=== PATIENT | female | born 1985 | race Caucasian/White ===

== ENCOUNTER 2017-08-16 21:16 | Emergency (ER) | payer MEDICAID ==
[~2017-08-16] VITALS: Ht 165.1 cm; Wt 47.6 kg
[~2017-08-16 21:16] MED LIST: ALBU8.5H8 INH; CEPH500C5 PO; CLOT15CR74 TP; DIP0.05CR TOP; LIDO20SO PO; NO HOME MEDS
[2017-08-16] MEDS ORDERED: CYCL-1 PO (21:35)
[2017-08-16 21:39] VITALS: BP 106/63
== END 2017-08-16 21:41 | disposition home or self-care (01) ==
LOC: ER 21:17
DX: M62.838 Other muscle spasm (principal); J45.909 Unspecified asthma, uncomplicated; Z98.890 Other specified postprocedural states; F12.90 Cannabis use, unspecified, uncomplicated; F15.90 Other stimulant use, unspecified, uncomplicated; Z60.2 Problems related to living alone; Z59.0 Homelessness; Z56.0 Unemployment, unspecified; Z79.899 Other long term (current) drug therapy
CPT/HCPCS: 99283

== ENCOUNTER 2024-09-25 22:29 | Emergency (ER) | payer MEDICAID ==
[~2024-09-25] VITALS: Ht 165.1 cm; Wt 58.0 kg
[~2024-09-25 22:29] MED LIST changes: +ALBU8.5H17 INH; -ALBU8.5H8 INH; -CEPH500C5 PO; +CYCL-1 PO
[2024-09-25 22:31] VITALS: BP 136/84; PULSE 116; RESP 18; TEMP 98.6; O2SAT 97
[2024-09-25 22:58] LABS: BASOPHILS % (AUTO) 0.1 % (0-1); EOSINOPHILS % (AUTO) 0 % (0-6); HEMOGLOBIN 10.2 g/dl (12.0-16.0); LYMPHOCYTES # (AUTO) 1.5 X10'3 (1.1-4.8); LYMPHOCYTES % (AUTO) 15.3 % (21-51); MEAN CORPUSCULAR HEMOGLOBIN 28.6 PG (27.0-31.0); MEAN CORPUSCULAR HGB CONC 33.9 g/dL (33.0-36.5); MEAN CORPUSCULAR VOLUME 84.3 FL (78-98); MEAN PLATELET VOLUME 8.3 FL (7.4-10.4); MONOCYTES % (AUTO) 10.2 % (2-12); NEUTROPHILS # (AUTO) 7.5 X10'3 (1.8-7.7); NEUTROPHILS % (AUTO) 74.4 % (42-75); PLATELET COUNT 410 X10'3 (140-440); RED BLOOD COUNT 3.56 X10'6 (4.20-5.60); RED CELL DISTRIBUTION WIDTH 14.2 % (11.5-14.5)
[2024-09-25 23:06] LABS: ALBUMIN 2.5 G/DL (3.4-5.0); ANION GAP 7 (8-16); BLOOD UREA NITROGEN 10 MG/DL (7-18); BUN/CREATININE RATIO 14.5 (10.0-20.0); CALCIUM 8.6 MG/DL (8.5-10.1); CHLORIDE 103 MMOL/L (99-107); CREATININE 0.69 MG/DL (0.40-0.90); GLUCOSE 113 MG/DL (70-104); POTASSIUM 3.9 MMOL/L (3.5-5.1); SODIUM 139 MMOL/L (135-145); TOTAL CARBON DIOXIDE 29.2 MMOL/L (24-32); eCRCL 98 ML/MIN; eGFR > 90 ML/MIN
== END 2024-09-26 02:01 | disposition left against medical advice (07) ==
LOC: ER 22:30
DX: M79.641 Pain in right hand (principal); Z53.21 Procedure and treatment not carried out due to patient leaving prior to being seen by health care provider
CPT/HCPCS: 36415; 71045; 73130; 80048; 83605; 84145; 85025; 87040

== ENCOUNTER 2024-09-28 00:14 | Inpatient (IN) | payer MEDICAID ==
[2024-09-28] VITALS (16 sets, daily range): BP systolic 96–130; BP diastolic 47–68; PULSE 83–106; RESP 14–18; TEMP 97.9–98; O2SAT 95–100
[~2024-09-28] VITALS: Ht 165.1 cm; Wt 50.2 kg
[2024-09-28] MEDS: HYDROcodone/acetaminophen 10/325mg tab PO ONE (01:54)
[2024-09-28] MEDS: vancomycin/NS 1 GM ADD-VANTAGE 250 ML IV ONE (03:30)
[2024-09-28] MEDS: normal saline 1000ML IV soln IV ONE (04:12)
[2024-09-28] MEDS: HYDROmorphone 1 mg/ml syringe IV ONE ×2 (04:12→04:29)
[2024-09-28] MEDS: CefTRIAXone 2gm/D5W 50ml BAG 50 ML IV ONE (04:19)
[2024-09-28 04:35] LABS: BASOPHILS % (AUTO) 0 % (0-1); EOSINOPHILS % (AUTO) 0 % (0-6); HEMATOCRIT 31.3 % (35.0-45.0); HEMOGLOBIN 10.1 g/dl (12.0-16.0); LYMPHOCYTES # (AUTO) 1.5 X10'3 (1.1-4.8); LYMPHOCYTES % (AUTO) 9.3 % (21-51); MEAN CORPUSCULAR HEMOGLOBIN 27.2 PG (27.0-31.0); MEAN CORPUSCULAR HGB CONC 32.2 g/dL (33.0-36.5); MEAN CORPUSCULAR VOLUME 84.6 FL (78-98); MEAN PLATELET VOLUME 8.5 FL (7.4-10.4); MONOCYTES # (AUTO) 1.2 X10'3 (0-0.9); MONOCYTES % (AUTO) 7.4 % (2-12); NEUTROPHILS # (AUTO) 13.4 X10'3 (1.8-7.7); NEUTROPHILS % (AUTO) 83.3 % (42-75); PLATELET COUNT 425 X10'3 (140-440); RED CELL DISTRIBUTION WIDTH 13.9 % (11.5-14.5); WHITE BLOOD COUNT 16.1 X10'3 (4.5-11.0)
[2024-09-28 04:38] LABS: ALBUMIN 2.3 G/DL (3.4-5.0); ANION GAP 5 (8-16); BLOOD UREA NITROGEN 16 MG/DL (7-18); BUN/CREATININE RATIO 21.6 (10.0-20.0); CALCIUM 8.8 MG/DL (8.5-10.1); CHLORIDE 101 MMOL/L (99-107); CREATININE 0.74 MG/DL (0.40-0.90); GLUCOSE 140 MG/DL (70-104); MAGNESIUM 2.1 MG/DL (1.5-2.4); POTASSIUM 3.9 MMOL/L (3.5-5.1); SODIUM 137 MMOL/L (135-145); TOTAL CARBON DIOXIDE 30.6 MMOL/L (24-32); eCRCL 80 ML/MIN; eGFR 87 ML/MIN
[2024-09-28] MEDS ORDERED: potassium Cl 40MEQ/1/2NS 520ml 520 ML IV PRN (05:00)
[2024-09-28] MEDS ORDERED: acetaminophen 325mg tablet PO PRN (05:00)
[2024-09-28] MEDS ORDERED: ondansetron/PF 4mg/2ml inj IV PRN ×2 (05:00→16:05)
[2024-09-28] MEDS ORDERED: mag hydrox/Alum hydrox/simeth 30ml oral suspension PO PRN (05:00)
[2024-09-28] MEDS ORDERED: potassium Cl 20 mEq SR tablet PO PRN ×2 (05:00)
[2024-09-28] MEDS ORDERED: magnesium Cl slow-release 64mg tablet PO PRN (05:00)
[2024-09-28] MEDS ORDERED: magnesium sulf-water 2g/50mL 50 ML IV PRN (05:00)
[2024-09-28] MEDS ORDERED: magnesium hydroxide 30ml (MOM) UD suspension PO PRN (05:00)
[2024-09-28] MEDS ORDERED: morphine 2 MG/ML inj. syringe IV PRN ×2 (05:00→16:05)
[2024-09-28] MEDS ORDERED: magnesium sulf-water 4G/100mL 100 ML IV PRN (05:00)
[2024-09-28 05:31] LABS: C-REACTIVE PROTEIN 22.86 MG/DL (0.0-0.5)
[2024-09-28] MEDS: normal saline 1000ml 1,000 ML IV SCH (06:45)
[2024-09-28] MEDS: heparin, porcine 5000 units/ml vial SQ SCH (07:07)
[2024-09-28] MEDS: docusate sod 100mg capsule PO SCH (07:08)
[2024-09-28] MEDS: morphine 2 MG/ML inj. syringe IV PRN (07:12)
[2024-09-28 07:55] LABS: ETHANOL < 10 MG/DL (<10)
[2024-09-28] MEDS: K and/or MAG REPLACEMENT MC SCH (08:00)
[2024-09-28 11:44] LABS: BILIRUBIN,URINE NEGATIVE (Neg); COLOR,URINE STRAW (Yellow); GLUCOSE, URINE NEGATIVE (Neg); KETONES,URINE NEGATIVE (Neg); LEUKOCYTE ESTERASE ,URINE NEGATIVE (Neg); NITRITES, URINE POSITIVE (Neg); OCCULT BLOOD,URINE NEGATIVE (Neg); PROTEIN,URINE NEGATIVE (Neg); UROBILINOGEN,URINE 0.2 E.U/dL (0.2-1.0)
[2024-09-28 11:46] LABS: URINE HCG NEGATIVE (NEG)
[2024-09-28 11:56] LABS: URINE AMPHETAMINE SCREEN POSITIVE (Neg); URINE BARBITUATE SCREEN NEGATIVE (Neg); URINE BENZODIAZEPINES SCREEN NEGATIVE (Neg); URINE CANNABINOID SCREEN NEGATIVE (Neg); URINE COCAINE SCREEN NEGATIVE (Neg); URINE METHADONE SCREEN NEGATIVE (Neg); URINE OPIATE SCREEN POSITIVE (Neg); URINE PHENCYCLIDINE SCREEN NEGATIVE (Neg)
[2024-09-28] MEDS: HYDROcodone/acetaminophen 10/325mg tab PO PRN (11:56)
[2024-09-28 12:05] LABS: BACTERIA,URINE 1+ /HPF (Neg); CLARITY,URINE SLIGHTLY CLOUDY (Clear); MUCUS STRANDS NONE SEEN /LPF (Neg); RBC,URINE NONE SEEN /HPF (0-2); SQUAMOUS EPITHELIAL CELL,UR NONE SEEN /LPF (FEW); UA COLLECTION TYPE OTHER; WBC CLUMPS,URINE FEW /HPF (NEGATIVE)
[2024-09-28] MEDS: vancomycin/NS 1 GM ADD-VANTAGE 250 ML IV SCH (15:32)
[2024-09-28] MEDS ORDERED: BUPIVAcaine/PF 2.5mg/ml (0.25%) 10ml vial ONE (15:45)
[2024-09-28] MEDS: piperacillin/tazo 4.5gm/100ml 100 ML IV SCH (16:00)
[2024-09-28] MEDS ORDERED: meperidine/PF 25mg/ml syringe IV PRN ×3 (16:05)
[2024-09-28] MEDS ORDERED: proCHLORperazine 10 MG/2 ml inj IV PRN (16:05)
[2024-09-28] MEDS: ringers solution, lacted 1,000 ML IV SCH (16:05)
[2024-09-28] MEDS ORDERED: fentaNYL/PF 50MCG/1 ML 2ML syringe ONE ×2 (17:28→17:45)
[2024-09-28] MEDS ORDERED: propofol inj 20 ML IV ONE (18:04)
[2024-09-28] MEDS: morphine 4 MG/ML inj SYRINge IV PRN (18:28)
[2024-09-28] MEDS: acetaminophen 1,000mg/100ml IV 100 ML IV ONE (18:37)
[2024-09-28] MEDS: ketorolac trometh 30MG/ML vial 30 MG/ML VIAL IV ONE (18:38)
[2024-09-28] MEDS ORDERED: LORazepam 1 MG tablet PO PRN (21:50)
[2024-09-28] MEDS ORDERED: dextrose 50%-water 50ml dispensing syringe IV PRN ×2 (21:50)
[2024-09-28] MEDS ORDERED: haloperidol lactate 5mg/ml inj IM PRN (21:50)
[2024-09-28] MEDS ORDERED: glucagon, human recombinant 1mg kit SUBCUT PRN (21:50)
[2024-09-28] MEDS ORDERED: DEXTROSE 15 GM of carb/4 tabs (each vial/BOTTLE has 4 tablets) PO PRN ×2 (21:50)
[2024-09-28] MEDS ORDERED: LORazepam 2 mg/ml vial IV PRN (21:50)
[2024-09-28] MEDS ORDERED: haloperidol 5mg tablet PO PRN (21:50)
[2024-09-29 02:00] VITALS: BP 99/80; PULSE 104; RESP 20; TEMP 98.1; O2SAT 100
[2024-09-29] MEDS ORDERED: CefTRIAXone 2gm/D5W 50ml BAG 50 ML IV SCH (04:00)
[2024-09-29 05:00] VITALS: BP 115/63; PULSE 85; RESP 20; TEMP 98.2; O2SAT 99
[2024-09-29 05:52] LABS: BASOPHILS % (AUTO) 0 % (0-1); EOSINOPHILS % (AUTO) 0 % (0-6); HEMATOCRIT 30.5 % (35.0-45.0); LYMPHOCYTES # (AUTO) 1.3 X10'3 (1.1-4.8); LYMPHOCYTES % (AUTO) 9.8 % (21-51); MEAN CORPUSCULAR HEMOGLOBIN 27.6 PG (27.0-31.0); MEAN CORPUSCULAR HGB CONC 32.7 g/dL (33.0-36.5); MEAN CORPUSCULAR VOLUME 84.3 FL (78-98); MEAN PLATELET VOLUME 8.5 FL (7.4-10.4); MONOCYTES # (AUTO) 0.8 X10'3 (0-0.9); NEUTROPHILS # (AUTO) 11.6 X10'3 (1.8-7.7); NEUTROPHILS % (AUTO) 84.2 % (42-75); PLATELET COUNT 377 X10'3 (140-440); RED BLOOD COUNT 3.61 X10'6 (4.20-5.60); RED CELL DISTRIBUTION WIDTH 14.7 % (11.5-14.5); WHITE BLOOD COUNT 13.7 X10'3 (4.5-11.0)
[2024-09-29 05:57] LABS: ALANINE AMINOTRANSFERASE 16 U/L (12-78); ALBUMIN 1.8 G/DL (3.4-5.0); ALBUMIN/GLOBULIN RATIO 0.4 (1.1-1.5); ALKALINE PHOSPHATASE 96 IU/L (46-116); AMYLASE 69 U/L (25-115); ANION GAP 7 (8-16); ASPARTATE AMINO TRANSFERASE 9 U/L (10-37); BILIRUBIN,TOTAL 0.2 MG/DL (0.1-1.0); BLOOD UREA NITROGEN 12 MG/DL (7-18); BUN/CREATININE RATIO 17.9 (10.0-20.0); CALCIUM 8.2 MG/DL (8.5-10.1); CHLORIDE 109 MMOL/L (99-107); CREATININE 0.67 MG/DL (0.40-0.90); GLUCOSE 107 MG/DL (70-104); LIPASE 31 U/L (16-77); POTASSIUM 4.1 MMOL/L (3.5-5.1); SODIUM 144 MMOL/L (135-145); TOTAL CARBON DIOXIDE 28.3 MMOL/L (24-32); TOTAL PROTEIN 6.1 G/DL (6.4-8.2); eCRCL 88 ML/MIN; eGFR > 90 ML/MIN
[2024-09-29 08:45] VITALS: RESP 16; O2SAT 97
[2024-09-29 10:00] VITALS: BP 136/72; PULSE 87; RESP 18; TEMP 98.1; O2SAT 97
[2024-09-29] MEDS: HYDROmorphone inj. 0.5 MG/0.5 ML DISP.SYRIN IV PRN (11:17)
[2024-09-29] MEDS: VANCOMYCIN LEVEL IV ONE (14:31)
[2024-09-29] MEDS: VANCOMYCIN/WATER FOR INJ (PEG) 1.5GM/300 ML IVPB IV SCH (15:18)
[2024-09-29 18:30] VITALS: BP 107/47; PULSE 97; RESP 18; RESP 20; TEMP 99.1; O2SAT 99
[2024-09-30 05:00] VITALS: BP 137/82; PULSE 81; RESP 20; TEMP 98.1; O2SAT 98
[2024-09-30 05:56] LABS: BASOPHILS % (AUTO) 0.1 % (0-1); EOSINOPHILS % (AUTO) 0 % (0-6); HEMATOCRIT 31.1 % (35.0-45.0); LYMPHOCYTES # (AUTO) 1.9 X10'3 (1.1-4.8); LYMPHOCYTES % (AUTO) 16.3 % (21-51); MEAN CORPUSCULAR HEMOGLOBIN 27.3 PG (27.0-31.0); MEAN CORPUSCULAR VOLUME 85.2 FL (78-98); MEAN PLATELET VOLUME 8.3 FL (7.4-10.4); MONOCYTES # (AUTO) 0.7 X10'3 (0-0.9); NEUTROPHILS # (AUTO) 9.1 X10'3 (1.8-7.7); NEUTROPHILS % (AUTO) 77.6 % (42-75); PLATELET COUNT 434 X10'3 (140-440); RED BLOOD COUNT 3.66 X10'6 (4.20-5.60); RED CELL DISTRIBUTION WIDTH 14.9 % (11.5-14.5); WHITE BLOOD COUNT 11.7 X10'3 (4.5-11.0)
[2024-09-30] MEDS ORDERED: ALBU90AE INH (06:11)
[2024-09-30 06:24] LABS: ALANINE AMINOTRANSFERASE 12 U/L (12-78); ALBUMIN 1.8 G/DL (3.4-5.0); ALBUMIN/GLOBULIN RATIO 0.4 (1.1-1.5); ALKALINE PHOSPHATASE 81 IU/L (46-116); AMYLASE 87 U/L (25-115); ANION GAP 6 (8-16); ASPARTATE AMINO TRANSFERASE 12 U/L (10-37); BILIRUBIN,TOTAL 0.2 MG/DL (0.1-1.0); BLOOD UREA NITROGEN 5 MG/DL (7-18); CALCIUM 8.4 MG/DL (8.5-10.1); CHLORIDE 111 MMOL/L (99-107); CREATININE 0.71 MG/DL (0.40-0.90); GLUCOSE 97 MG/DL (70-104); LIPASE 37 U/L (16-77); POTASSIUM 4.4 MMOL/L (3.5-5.1); SODIUM 144 MMOL/L (135-145); TOTAL CARBON DIOXIDE 26.6 MMOL/L (24-32); TOTAL PROTEIN 6.1 G/DL (6.4-8.2); eCRCL 83 ML/MIN; eGFR > 90 ML/MIN
[2024-09-30 08:30] VITALS: RESP 18; O2SAT 98
[2024-09-30 10:00] VITALS: BP 138/81; PULSE 99; RESP 22; TEMP 98.2; O2SAT 97
[2024-09-30] MEDS ORDERED: CEPH-585 PO (10:38)
[2024-09-30] MEDS: cephalexin 500mg capsule PO SCH (10:39)
[2024-10-01] MEDS ORDERED: VANCOMYCIN LEVEL IV ONE (02:30)
== END 2024-09-30 11:10 | disposition home or self-care (01) | DRG 710 ==
LOC: ER 00:14 → ED HOLD 03:52 → EDBEDREQ 06:42 → SUR 3N 08:07
PROVIDERS: ADMIT Internal Medicine Critical Care Medicine; ATTEND Family Medicine
PROC: 0X6N0Z2 Detachment at Right Index Finger, Mid, Open Approach (ICD-10-PCS; principal; 2024-09-28 17:24)
DX: A41.9 Sepsis, unspecified organism (principal); M86.8X4 Other osteomyelitis, hand; D64.9 Anemia, unspecified; F17.210 Nicotine dependence, cigarettes, uncomplicated; M65.90 Unspecified synovitis and tenosynovitis, unspecified site; L03.113 Cellulitis of right upper limb; J45.909 Unspecified asthma, uncomplicated; F19.10 Other psychoactive substance abuse, uncomplicated; Z59.00 Homelessness unspecified; Z79.899 Other long term (current) drug therapy; Z88.8 Allergy status to other drugs, medicaments and biological substances
CPT/HCPCS: 36415; 73130; 73218; 80048; 80053; 80202; 80305; 80320; 81001; 81025; 82150; 82948; 83605; 83690; 83735; 84145; 85025; 85651; 86140; 87040; 87070; 87075; 87077; 87081; 87088; 87186; 93005; 96374; 99285; A4618; A6222; A6223; A6258; A6446; A6449; A7000; G0378; J0131; J0696; J1171; J1644; J1885; J2270; J2543; J2704; J3010; J3370; J3372; J3490; J7030; J7120